=== PATIENT | male | born 1970 | race Caucasian/White ===

== ENCOUNTER 2017-01-29 10:08 | Outpatient (CLI) | payer BC ==
--- NOTE | 2017-01-29 11:32 | RAD ---
ABDOMEN 1 VIEW: HISTORY: Flank pain. Renal stone. COMPARISON: CT abdomen from 12/21/16. FINDINGS: Visualized bowel gas pattern is nonspecific. Projecting over the inferior pole of the right renal s hadow is an oval calcification that correlates with a 0.4 cm calculus on recent CT. Calcified granu lomata are apparent within the spleen. IMPRESSION: Nonobstructing right renal calculus. POS: [facility]
== END 2017-01-29 10:09 | disposition home or self-care (01) ==
LOC: RAD 10:08
PROVIDERS: ATTEND Urology
DX: R10.9 Unspecified abdominal pain (principal); N20.0 Calculus of kidney; Z87.442 Personal history of urinary calculi
CPT/HCPCS: 74000

== ENCOUNTER 2018-05-30 12:49 | Outpatient (CLI) | payer BC ==
--- NOTE | 2018-05-30 14:14 | RAD ---
AP ABDOMINAL RADIOGRAPH: Date: 05-30-18 History: Renal calculi. Comparison: 01-29-17 FINDINGS: Again noted is a calcification overlying the inferior pole right renal shadow compatible with a renal calculus, which was also seen on CT abdomen on 12-21-16. A few punctate increased density foci are se en overlying the inferior pole left kidney which may represent very tiny punctate inferior pole left renal calculi. No additional suspicious calcifications are seen. Bowel gas pattern is nonspecific. Os seous structures are intact. There has been no interval change compared to the prior exam. IMPRESSION: 1. Nonobstructing bilateral nephrolithiasis with calculi seen in the inferior pole of each kidney. POS: [facility]
== END 2018-05-30 12:50 | disposition home or self-care (01) ==
LOC: RAD 12:49
PROVIDERS: ATTEND Urology
DX: N20.0 Calculus of kidney (principal)
CPT/HCPCS: 74018

== ENCOUNTER 2018-11-08 10:38 | Emergency (ER) | payer BC ==
[2018-11-08] MEDS ORDERED: Ketorolac Tromethamine 30 MG/ML VIAL ONE (11:13)
[2018-11-08 11:19] LABS: #Basophils 0.1 thou/uL (0.0-0.2); #Eosinphils 0.3 thou/uL (0.0-0.7); #Lymphocytes 3.3 thou/uL (1.20-3.40); #Monocytes 0.9 thou/uL (0.11-0.59); #Neutrophils 4.7 thou/uL (1.40-6.50); %Basophils 0.8 % (0.0-1.0); %Eosinophils 3.2 % (0.0-10.0); %Lymphocytes 35.3 % (21.0-51.0); %Monocytes 9.5 % (0.0-10.0); %Neutrophils 51.2 % (42.0-75.0); Hemoglobin 16.1 g/dL (14.0-18.0); Mean Corpuscular HGB CONC 33.2 g/dL (32.0-36.0); Mean Corpuscular Hemoglobin 29.6 pg (27.0-31.0); Mean Corpuscular Volume 89.4 fL (78.0-98.0); Mean Platelet Volume 7.7 fL (7.4-10.4); Platelet Count 307 thou/uL (130-400); RBC Distribution Width 11.6 % (11.5-14.5); Red Blood Cell (RBC) Count 5.44 mill/uL (4.70-6.10); White Blood Cell (WBC) Count 9.2 thou/uL (4.8-10.8)
[2018-11-08 11:41] LABS: ALT (SGPT) 25 U/L (8-55); AST (SGOT) 18 U/L (5-34); Albumin 4.5 g/dL (3.5-5.0); Alkaline Phosphatase 93 U/L (40-150); Anion Gap 17 mmol/L (10-20); BUN (Urea Nitrogen) 18 mg/dL (8.9-20.6); Bilirubin, Total 0.8 mg/dL (0.2-1.2); Calc. Creatinine Clearance 0 mL/min (70-130); Calcium 9.6 mg/dL (7.8-10.44); Carbon Dioxide 19 mmol/L (22-29); Chloride 105 mmol/L (98-107); Estimated GFR-MDRD 74; Glucose 135 mg/dL (70-105); Potassium 3.6 mmol/L (3.5-5.1); Protein, Total 7.5 g/dL (6.0-8.3); Sodium 137 mmol/L (136-145)
--- NOTE | 2018-11-08 11:44 | CT ---
CT ABDOMEN AND PELVIS WITHOUT CONTRAST: Date: 11/08/18 COMPARISON: None. HISTORY: Abdominal pain. History of kidney stones. TECHNIQUE: Multiple contiguous axial images were obtained in a CT of the abdomen and pelvis without contrast. Co valdemar reformats were performed. FINDINGS: There is a 6 mm calcification in the proximal right ureter with mild enlargement of the renal pelvis. Mild caliceal enlargement is seen. No left hydronephrosis or calcification is seen. Calcifications in the liver and spleen are from prior granulomatous disease. The gallbladder, adrenal glands, and pancreas are unremarkable, although evaluation is limited without IV contrast. The large and small bowel are unremarkable. The appendix is normal. No abdominal or pelvic lymphadeno diana seen. A calcified granuloma is seen in the left lung base. The abdominal wall soft tissues are unremarkable . IMPRESSION: Proximal right ureteral calcification with mild right hydronephrosis. POS: [facility]
[2018-11-08] MEDS ORDERED: Ondansetron PF 4 MG/2 ML Vial ONE ×2 (12:16→14:25)
[2018-11-08] MEDS ORDERED: Morphine 4 MG/ML VIAL ONE (12:22)
[2018-11-08 13:18] LABS: Bilirubin Small (Negative); Blood, Urine Large (Negative); Glucose, Urine (Dipstick) Negative (Negative); Leukocyte Negative (Negative); Nitrite Negative (Negative); Protein, Urine (Dipstick) 100 mg/dL (Neg-Trace)
[2018-11-08] MEDS ORDERED: Morphine 2 MG/ML SYRINGE ONE (13:29)
[2018-11-08 13:30] LABS: Clarity Hazy (Clear)
[2018-11-08 13:38] LABS: Bacteria/HPF None Seen HPF (None Seen); Mucous/LPF 1+ LPF (<2+); RBC/HPF Greater than 50 HPF (0-3); Squamous Epithelial 0-3 HPF (0-3)
[2018-11-08] MEDS ORDERED: Fentanyl 100 MCG/2 ML VIAL ONE ×2 (13:42→14:58)
[2018-11-08] MEDS ORDERED: Iothalamate Meglumine 60% 50 ML VIAL FS ONE (14:14)
[2018-11-08] MEDS ORDERED: PROPOFOL 200 MG/20 ML VIAL ONE (14:25)
[2018-11-08] MEDS ORDERED: Dexamethasone 20 MG/5 ML VIAL ONE (14:25)
[2018-11-08] MEDS ORDERED: Lidocaine 1% PF 5 ML VIAL ONE (14:25)
[2018-11-08] MEDS ORDERED: Levofloxacin 500 mg/D5W 100 ml Premix Bag ONE (14:28)
[2018-11-08] MEDS ORDERED: Phenazopyridine HCl 97.5 MG TABLET ONE ×2 (15:58)
[2018-11-08] MEDS ORDERED: Oxybutynin 5 MG TAB ONE (15:58)
--- NOTE | 2018-11-08 16:15 | OP ---
DATE OF PROCEDURE: 11/08/2018 SERVICE: Urology. PREOPERATIVE DIAGNOSIS: Right ureteral stone. POSTOPERATIVE DIAGNOSIS: Right ureteral stone. PROCEDURES PERFORMED: Right cystoscopy with right ureteral stent placement. INDICATION FOR PROCEDURE: Mr. Ryan is a 47-year-old white male with a history of nephrolithiasis. He presented to the ER with severe right flank pain and a right proximal ureteral stone. Given his options, he did not wish to pursue medical expulsive therapy and wishes for a stent. Risks and benefits were discussed and he has agreed to proceed forward. DESCRIPTION OF PROCEDURE: After identification of armband and verification of consent, the patient was brought back to the operating room, where he underwent general anesthesia with an LMA. He was then placed in dorsal lithotomy position, prepped and draped in usual sterile fashion. After appropriate time-out, a lubricated 20-Albanian rigid cystoscope sheath was introduced per urethra into the bladder. Urethra did have to be dilated to allow for access of the cystoscope through the meatus. The urethra was unremarkable without strictures. The prostate was mildly hypertrophic, but otherwise did not appear significantly obstructive. The bladder mucosa was normal appearing with grade 1 trabeculation only. There were no stones or tumors within the bladder. Both ureters were in orthotopic location. The right ureter was cannulated with a 0.035 Sensor wire up to the level of renal pelvis. A 6 x 28 double-J stent was advanced over the Sensor wire up to the level of renal pelvis. The wire was removed leaving a good curl in the kidney and a good curl in the bladder. The bladder was then emptied and the cystoscope removed. The patient then awakened, taken to PACU for recovery in stable condition. COMPLICATIONS: None. ESTIMATED BLOOD LOSS: Minimal. RETAINED TUBES AND DRAINS: 6 x 28 double-J stent on the right. SPECIMEN: None. DISPOSITION: The patient will be discharged home to follow up with me in approximately 2 weeks, at which time, we will schedule a definitive stone surgery. Of note, the patient had a relatively radiolucent stone on fluoro, which means that ureteroscopy would probably be the preferred option. Job ID: [id number]
--- NOTE | 2018-11-08 17:48 | CON ---
DATE OF CONSULTATION: 11/08/2018 CONSULTING PHYSICIAN: Dr. Keenan. CONSULTED: Dr. Davies. REASON FOR CONSULTATION: Kidney stones. HISTORY OF PRESENT ILLNESS: Mr. Ryan is a 47-year-old white male, who presented to the emergency room today with severe 9/10 right flank pain without radiation to the groin. This started today this morning and has progressively gotten worse. Nothing seems to be helping. He did have nausea and vomiting, but denied any fevers or chills. He has a history of kidney stones in the past. He had previously been a patient of Dr. Cuevas and had been seeing her with monitoring and surveillance of a known right 6 mm lower pole stone as well as 2 smaller stones in the left. CT done in the ER demonstrated that the 6 mm stone was now in the proximal ureter. He has had ESWL once in the past, but denies any other procedures. He has no history of UTIs or significant voiding problems. He denies any hematuria. ALLERGIES: NONE. CURRENT HOME MEDICATIONS: 1. Zoloft. 2. Allopurinol. 3. Lisinopril. 4. Simvastatin. PAST MEDICAL HISTORY: 1. Anxiety. 2. Nephrolithiasis. 3. Hypertension. FAMILY HISTORY: Noncontributory for stone disease. SOCIAL HISTORY: The patient is . He denies illicit alcohol, drug, or tobacco abuse. REVIEW OF SYSTEMS: A 12-point review of systems reviewed, entirely negative other than what was commented on the HPI, specifically, the patient's nausea, vomiting, and flank pain. PHYSICAL EXAMINATION: VITAL SIGNS: Temperature 98.3, pulse 103, respirations 20, blood pressure 132/79, and saturation 99% on room air. GENERAL: Appears uncomfortable, but conversive, well-nourished, well-developed, appears stated age. HEENT: Normocephalic and atraumatic. Pupils symmetric and round. Sclerae are nonicteric. Moist mucous membranes. Trachea midline. CARDIOVASCULAR: Regular rate and rhythm. Normal S1, S2. Symmetric pulses. CHEST: No increased work of breathing. Symmetric expansion. LUNGS: No wheezes. ABDOMEN: Soft, mildly tender to palpation on the right. Nondistended. No hernias. Positive bowel sounds. No organomegaly or hepatosplenomegaly. : The patient is circumcised. Bilaterally descended testes within the scrotum. No edema or infections. There is some hyperpigmentation around the coronal sulcus and with one unusual lesion that may represent a potential warty like lesion, does not appear malignant. EXTREMITIES: No clubbing, cyanosis, or edema. MUSCULOSKELETAL: No obvious joint deformities or joint erythema noted. LYMPHATICS: No lymphadenopathy in the supraclavicular, inguinal, axillary, or cervical areas. SKIN: Warm and dry. No rashes or lesions. Good turgor. NEUROLOGIC: Cranial nerves 2 through 12 grossly intact. No focal or sensory deficits identified. PSYCHIATRIC: Alert and oriented x3. Appropriate mood and affect. LABORATORY DATA: On laboratory evaluation, the full set of labs are in the [facility] system, which I have reviewed. White count is 9.2. Creatinine is 1.08. Urinalysis demonstrates greater than 50 rbc's, 4 to 6 wbc's, nitrite negative, 100 protein, leukocyte esterase negative, no bacteria. On CT stone protocol, which I have reviewed the images myself, demonstrates a 6 mm proximal right ureteral stone with mild hydronephrosis. No significant nephrolithiasis is noted on the left. There are calcifications in the liver and spleen as well as a calcified granuloma within the lung. ASSESSMENT AND PLAN: A 47-year-old white male with a right proximal ureteral stone with poorly controlled pain and concerns about pain control over the next week. He will be traveling out of town next week and stated that he does not want to be caught off guard with severe pain. I discussed with him the ureteral stent, which has its own set of pain and may cause significant patient discomfort. I told him that if he chose to have a stent, I would require that he performs light activities only until we could do his definitive stone surgery, at which time, after that his stent could be removed, he could resume normal activities again. We discussed the risks of stenting including urethral, bladder, or kidney damage, ureteral injury or perforation, inability to pass the stent, hematuria, urinary tract infection. He understands these risks and wishes to proceed forward with ureteral stenting. I did also deputy general counsel him that it is imperative that he keep his followup appointments as disappearing with ureteral stent in can lead to significant long-term consequences including significant stone formation, loss of kidney, and severe infections. He understands and will keep all future followup appointments. PLAN: 1. To OR now for cystoscopy and right ureteral stent. 2. N.p.o. 3. Levofloxacin 500 mg IV on-call to OR. 4. SCDs bilaterally. 5. The patient can be discharged home after his procedure. Job ID: [id number]
== END 2018-11-08 18:30 | disposition admitted as inpatient to this hospital (09) ==
LOC: ERS 10:38
DX: N13.2 Hydronephrosis with renal and ureteral calculous obstruction (principal); F32.9 Major depressive disorder, single episode, unspecified; Z87.442 Personal history of urinary calculi; Z79.899 Other long term (current) drug therapy
CPT/HCPCS: 36415; 74176; 76000; 80053; 81003; 81015; 85025; 96361; 96374; 96375; 96376; C1769; J1100; J1885; J1956; J2001; J2270; J2405; J2704; J3010

== ENCOUNTER 2018-11-18 09:28 | Outpatient (CLI) | payer BC ==
[2018-11-18 11:30] LABS: Bacteria/HPF None Seen HPF (None Seen); Bilirubin Negative (Negative); Blood, Urine 1+ (Negative); Clarity Clear (Clear); Glucose, Urine (Dipstick) Normal (Negative); Leukocyte 75 Leu/uL (Negative); Nitrite Negative (Negative); Protein, Urine (Dipstick) 20 mg/dL (Neg-Trace); RBC/HPF 21-50 HPF (0-3); Squamous Epithelial None Seen HPF (0-3); Urobilinogen Normal mg/dL (Less than 2)
--- NOTE | 2018-11-21 17:50 | EKG ---
Test Reason : Blood Pressure : / mmHG Vent. Rate : 069 BPM Atrial Rate : 069 BPM P-R Int : 150 ms QRS Dur : 096 ms QT Int : 384 ms P-R-T Axes : 055 027 023 degrees QTc Int : 411 ms Normal sinus rhythm Normal ECG No previous ECGs available Confirmed by DR. Heron GARZA ([id number]) on 11/21/2018 5:49:59 PM Referred By: [facility] Confirmed By:DR. Heron GARZA
== END 2018-11-18 09:29 | disposition home or self-care (01) ==
LOC: LABBT 09:28
PROVIDERS: ATTEND Urology
DX: Z01.818 Encounter for other preprocedural examination (principal); N20.0 Calculus of kidney
CPT/HCPCS: 81001; 87086; 93005; 93010

== ENCOUNTER 2018-11-21 11:20 | Day surgery (SDC) | payer BC ==
[2018-11-18 09:44] VITALS: BMI 31.8
[2018-11-21] MEDS ORDERED: Ondansetron PF 4 MG/2 ML Vial ONE (11:38)
[2018-11-21] MEDS ORDERED: PROPOFOL 200 MG/20 ML VIAL ONE (11:38)
[2018-11-21] MEDS ORDERED: Lidocaine 1% PF 5 ML VIAL ONE (11:38)
[2018-11-21] MEDS ORDERED: Dexamethasone 20 MG/5 ML VIAL ONE (11:38)
[2018-11-21] MEDS ORDERED: Levofloxacin 500 mg/D5W 100 ml Premix Bag ONE (13:17)
[2018-11-21] MEDS ORDERED: Iothalamate Meglumine 60% 50 ML VIAL FS ONE (13:21)
[2018-11-21] MEDS ORDERED: Midazolam HCl 2 mg/2 ml Vial ONE (13:51)
[2018-11-21] MEDS ORDERED: Fentanyl 100 MCG/2 ML VIAL ONE ×2 (13:51→15:22)
--- NOTE | 2018-11-21 15:24 | RAD ---
RETROGRADE PYELOGRAM: Date: 11/21/18 HISTORY: Follow-up right ureteral calculus. FINDINGS: Right ureteral stent in place. The previously noted calculus is not definitely demonstrated on this s tudy. IMPRESSION: Right ureteral stent placement in good position. POS: [facility]
[2018-11-21] MEDS ORDERED: Phenazopyridine HCl 97.5 MG TABLET ONE ×2 (16:22)
[2018-11-21] MEDS ORDERED: Ketorolac Tromethamine 30 MG/ML VIAL ONE (16:28)
--- NOTE | 2018-11-21 17:19 | OP ---
DATE OF PROCEDURE: 11/21/2018 SERVICE: Urology. PREOPERATIVE DIAGNOSIS: Right ureteral stone. POSTOPERATIVE DIAGNOSIS: Right renal stone. PROCEDURES PERFORMED: Right ureteroscopy, laser lithotripsy, basket extraction of stone, and placement of a 6 x 28 double-J stent. INDICATION FOR PROCEDURE: Mr. Ryan is a 47-year-old white male, who initially presented to me with a right ureteral stone. He underwent a cystoscopy with right ureteral stent placement. We discussed coming back for definitive stone surgery with ureteroscopy with risks and benefits discussed and he agreed to proceed forward with the ureteroscopy. DESCRIPTION OF PROCEDURE: After identification of armband and verification of consent, the patient was brought back to the operating room, where he underwent anesthesia with an LMA. He was then placed in the dorsal lithotomy position and prepped and draped in usual sterile fashion. After appropriate time-out, a lubricated 22-Samoan rigid cystoscope was introduced per urethra into the bladder. Attention was turned to the right ureteral orifice, from which there was a stent emanating. Flexible grasper was used to grasp the stent and bring it out to the level of the urethral meatus. A 0.035 Sensor wire was advanced through the ureteral stent up to the level of the renal pelvis. The stent was then removed and discarded and a dual-lumen catheter was then advanced over the Sensor wire up to the level of the proximal ureter. An Amplatz Super Stiff wire was then placed through the second lumen up to the level of the renal pelvis and the dual-lumen removed. The Sensor wire was affixed to the drapes as a safety wire. An 11/13 x 42 cm ureteral access sheath was advanced up the Amplatz Super Stiff wire up to the level of the proximal ureter. There was mild resistance, but nothing significant. The inner cannula and the Super Stiff wire were then removed leaving the outer sheath and Sensor wire in place. A disposable flexible digital ureteroscope was then passed through the outer sheath up into the kidney. Full pyeloscopy was performed. The stone was found in the lower pole calyx. Due to the difficulty of navigating the lower pole, we elected to use a 1.9-Samoan ZeroTip Nitinol basket to manipulate the stone and grab it and put it into the upper pole, where it was easier to work on. The Nitinol basket was then withdrawn and a 273 micron laser fiber was used to come in and dust the stone into small fragments. There were a few larger fragments remaining after dusting and these were extracted using the same 1.9-Samoan ZeroTip Nitinol basket. Upon completion, there were no stone fragments over a millimeter in size. There was a significant amount of dust material, which should pass out in the urine. Repeat pyeloscopy was performed and no additional stones were found within the kidney or any calices. Pull-back ureteroscopy was employed and there did appear to be a full-thickness split in the ureter on the way out for approximately 3 to 4 cm. This probably was at the location of the mild resistance that was felt on the ureteral access sheath, although this did not pose a significant amount of difficulty initially. As such, I planned to leave prolonged stenting for 2 weeks to allow this to heal. The sheath was withdrawn entirely with the ureteroscope and no additional stones were found within the ureter. The cystoscope was then backloaded over the Sensor wire back into the bladder and a 6 x 28 double-J stent advanced over the Sensor wire up to the level of renal pelvis. The wire was then removed leaving a good curl in the kidney and a good curl in the bladder. The bladder was then emptied and cystoscope removed. The patient was then awakened and taken to PACU for recovery in stable condition. COMPLICATIONS: None. ESTIMATED BLOOD LOSS: Minimal. RETAINED TUBES AND DRAINS: 6 x 28 double-J stent on the right. SPECIMEN: Stone for stone analysis. DISPOSITION: The patient will be discharged home and follow up with me in two weeks for cysto and stent removal. Job ID: [id number]
== END 2018-11-21 18:15 | disposition home or self-care (01) ==
LOC: SDC 11:20
PROVIDERS: ATTEND Urology
PROC: 0TF38ZZ Fragmentation in Right Kidney Pelvis, Via Natural or Artificial Opening Endoscopic (ICD-10-PCS; principal; 2018-11-21)
PROC: 0T768DZ Dilation of Right Ureter with Intraluminal Device, Via Natural or Artificial Opening Endoscopic (ICD-10-PCS; principal; 2018-11-21)
DX: N20.0 Calculus of kidney (principal); Z79.899 Other long term (current) drug therapy
CPT/HCPCS: 74420; 82365; 88300; C1758; C1769; J1885; J1956; J2250; J3010

== ENCOUNTER 2019-02-12 13:27 | Outpatient (CLI) | payer BC ==
--- NOTE | 2019-02-12 13:45 | ULT ---
ULTRASOUND RETROPERITONEUM COMPLETE: (RENAL) DATE: 02/12/2019 HISTORY: 47-year-old male with right obstructive uropathy due to calculus at right proximal ureter. FINDINGS: The right kidney measures 12.5 x 6.5 x 6.5 cm. The left kidney measures 11.5 x 6 x 7 cm. Both kidneys have normal parenchymal echogenicity. There is no hydronephrosis. No moderate sized or large renal cystic or solid renal lesion is identified. Cursory images of the urinary bladder demonstrate no gross abnormality. IMPRESSION: Normal
== END 2019-02-12 13:28 | disposition home or self-care (01) ==
LOC: SCSULT 13:27
PROVIDERS: ATTEND Urology
DX: N20.0 Calculus of kidney (principal)
CPT/HCPCS: 76770